=== PATIENT | female | born 1960 | race Caucasian/White ===

== ENCOUNTER 2016-11-25 06:44 | Emergency (ER) | payer OTHER, BC ==
[~2016-11-25] VITALS: Ht 167.6 cm; Wt 220.4 kg
[2016-11-25] MEDS ORDERED: HYDROCODONE-AP1 EAC6 PO (06:57)
[2016-11-25] MEDS ORDERED: PREDNISONE 20 M20 MG PO (06:57)
[2016-11-25] MEDS ORDERED: LEFLUNOMIDE20 MG PO (06:58)
[2016-11-25] MEDS ORDERED: MOBIC15 MG PO (06:58)
[2016-11-25 08:46] VITALS: BP 135/93
== END 2016-11-25 09:44 | disposition home or self-care (01) ==
LOC: ER 06:44
DX: M79.1 Myalgia (principal); M06.9 Rheumatoid arthritis, unspecified; Z88.0 Allergy status to penicillin; Z88.2 Allergy status to sulfonamides